=== PATIENT | male | born 1965 | race Caucasian/White ===

== ENCOUNTER 2018-04-16 06:30 | Inpatient (IN) | payer OTHER ==
[2018-04-16] VITALS (7 sets, daily range): BP systolic 117–171; BP diastolic 84–115
[~2018-04-16] VITALS: Ht 172.7 cm; Wt 83.5 kg
[~2018-04-16 06:30] MED LIST: CYCLOBENZAPRINE10 MG PO; FLEXERIL10 MG PO; MEDROL DOSEPAK4 MG PO; MOTRIN800 MG PO
[2018-04-16] MEDS ORDERED: HYDROCHLOROTHIA25 M1 PO (06:35)
[2018-04-16] MEDS ORDERED: LISINOPRIL20 MG PO (06:35)
[2018-04-16] MEDS ORDERED: SYMB80 INH (06:36)
[2018-04-16] MEDS ORDERED: SIMVASTATIN40 MG PO (06:36)
[2018-04-16 06:53] LABS: BASO % 0.2 % (0.0-1.0); EOS # 0.1 10*3/uL (0.0-0.4); EOS % 0.7 % (1.0-4.0); HEMATOCRIT 41.9 % (42.0-52.0); HEMOGLOBIN 14.5 g/dl (14.0-18.0); LYMPH # 2.1 10*3/uL (1.3-4.4); LYMPH % 22.7 % (27.0-41.0); MEAN CORPUSCULAR HGB 30.5 pg (27.0-31.0); MEAN CORPUSCULAR HGB CONC 34.6 g/dl (33.0-37.0); MEAN PLATELET VOLUME 8.9 fl (9.6-12.3); MONO % 10.6 % (3.0-9.0); NEUT % 64.9 % (47.0-73.0); PLATELET COUNT AUTOMATED 269 10*3/uL (130-400); RED BLOOD COUNT 4.76 10*6/uL (4.50-5.90); RED CELL DISTRI WIDTH 12.1 % (0-14.5); WHITE BLOOD COUNT 9.2 10*3/uL (4.8-10.8)
[2018-04-16 07:09] LABS: ALBUMIN 3.9 gm/dl (3.1-4.5); ALKALINE PHOSPHATASE 65 U/L (45-117); BUN 16 mg/dl (7-24); CHLORIDE 100 mmol/L (98-107); POTASSIUM 3.5 mmol/L (3.5-5.1); SGOT/AST 28 IU/L (3-35); SGPT/ALT 46 U/L (12-78); SODIUM 135 mmol/L (136-145); TOTAL PROTEIN 7.9 gm/dL (6.4-8.2)
[2018-04-17] VITALS: BP 126/73
[2018-04-17 06:30] LABS: BASO % 0.5 % (0.0-1.0); EOS # 0.1 10*3/uL (0.0-0.4); EOS % 1.9 % (1.0-4.0); HEMATOCRIT 44.6 % (42.0-52.0); HEMOGLOBIN 15.3 g/dl (14.0-18.0); LYMPH # 1.2 10*3/uL (1.3-4.4); LYMPH % 18.5 % (27.0-41.0); MEAN CELL VOLUME 89.2 fl (80.0-94.0); MEAN CORPUSCULAR HGB 30.6 pg (27.0-31.0); MEAN CORPUSCULAR HGB CONC 34.3 g/dl (33.0-37.0); MEAN PLATELET VOLUME 9.1 fl (9.6-12.3); MONO # 0.7 10*3/uL (0.1-1.0); MONO % 10.7 % (3.0-9.0); NEUT # 4.3 10*3/uL (2.3-7.9); NEUT % 67.6 % (47.0-73.0); PLATELET COUNT AUTOMATED 263 10*3/uL (130-400); RED CELL DISTRI WIDTH 12.3 % (0-14.5); WHITE BLOOD COUNT 6.3 10*3/uL (4.8-10.8)
[2018-04-17 06:39] LABS: ACT PARTIAL THROMBO TIME 22.5 SECONDS (20.8-31.5); INTERNATIONAL NORM RATIO 0.9 (2.0-3.5)
[2018-04-17 06:40] LABS: ALBUMIN 3.7 gm/dl (3.1-4.5); ALKALINE PHOSPHATASE 64 U/L (45-117); BUN 13 mg/dl (7-24); CHLORIDE 99 mmol/L (98-107); CHOLESTEROL 197 mg/dL (<200); CREATININE 0.97 mg/dL (0.70-1.30); PHOSPHOROUS 2.8 mg/dL (2.5-4.9); POTASSIUM 3.9 mmol/L (3.5-5.1); SGOT/AST 23 IU/L (3-35); SGPT/ALT 46 U/L (12-78); SODIUM 135 mmol/L (136-145); TOTAL PROTEIN 7.8 gm/dL (6.4-8.2); TRIGLYCERIDES 162 mg/dl (<150); VLDL CHOLESTEROL 32 mg/dL (6-40)
[2018-04-17 06:44] LABS: FREE T4 0.96 ng/dl (0.76-1.46); HDL CHOLESTEROL 38 mg/dl (40-60); LDL CHOLESTEROL 127 mg/dL (9-159); THYROID STIM HORMONE (HS) 0.885 uIU/ml (0.358-4.75)
[2018-04-17 07:36] LABS: VITAMIN D, 25-HYDROXY 27.6 ng/mL (30-100)
[2018-04-17 08:00] VITALS: BP 140/95
[2018-04-17 12:00] VITALS: BP 133/93
[2018-04-17 16:00] VITALS: BP 122/82
[2018-04-17 20:00] VITALS: BP 128/79
[2018-04-18] VITALS: BP 129/81
[2018-04-18 08:00] VITALS: BP 140/87
[2018-04-18] MEDS ORDERED: DOXYCYCLINE100 M3 PO (09:11)
== END 2018-04-18 10:18 | disposition home or self-care (01) | DRG 603 ==
LOC: ED 06:30 → 5E 09:00 → EDHOLD 09:00 → 5E 09:05
PROVIDERS: Student in an Organized Health Care Education/Training Program
DX: L03.116 Cellulitis of left lower limb (principal); E87.1 Hypo-osmolality and hyponatremia; R00.0 Tachycardia, unspecified; R73.9 Hyperglycemia, unspecified; D72.810 Lymphocytopenia; I10 Essential (primary) hypertension; E78.5 Hyperlipidemia, unspecified; E83.41 Hypermagnesemia; E55.9 Vitamin D deficiency, unspecified; R73.03 Prediabetes; Z88.2 Allergy status to sulfonamides; Z91.040 Latex allergy status; Z91.018 Allergy to other foods; Z82.49 Family history of ischemic heart disease and other diseases of the circulatory system; Z87.891 Personal history of nicotine dependence; Z80.8 Family history of malignant neoplasm of other organs or systems; Z83.3 Family history of diabetes mellitus

== ENCOUNTER 2018-12-28 20:03 | Emergency (ER) | payer OTHER ==
[~2018-12-28] VITALS: Ht 172.7 cm; Wt 81.6 kg
--- NOTE | ~2018-12-28 | EKG ---
[place], [place] ELECTROCARDIOGRAM REPORT NAME: ABIDA ALLAN UNIT #: [id number] ROOM: DOCTOR: EPIPHANY DRAFT REPORT BIRTHDATE: [birth year] [facility] Test Date: 2018-12-28 Test Time: 20:06:25 Pat Name: ABIDA ALLAN Department: Room: Gender: [employer]: : 1965 Requested By: JUAN MANUEL SILVERMAN Order Number: [id number] Reading MD: Leonie Lima MD Measurements Intervals [place] Rate: 94 P: 49 ME: 154 QRS: 53 QRSD: 114 T: 33 QT: 377 QTc: 472 Interpretive Statements Sinus rhythm Probable left atrial enlargement Borderline intraventricular conduction delay Electronically Signed On 12-29-2018 9:13:38 PDT by Leonie Lima MD CM:EKGRPT:ELECTROCARDIOGRAM REPORT 05 2 JUAN MANUEL GOFF DRAFT REPORT JUAN MANUEL SILVERMAN DO
--- NOTE | ~2018-12-28 | EKG ---
[place], [place] ELECTROCARDIOGRAM REPORT NAME: ABIDA ALLAN UNIT #: [id number] ROOM: DOCTOR: VIDYA DRAFT REPORT BIRTHDATE: [birth year] [facility] Test Date: 2018-12-28 Test Time: 23:09:16 Pat Name: ABIDA ALLAN Department: Room: Gender: [employer]: GERMAINE : 1965 Requested By: JUAN MANUEL SILVERMAN Order Number: [id number] Reading MD: Leonie Lima MD Measurements Intervals [place] Rate: 86 P: 44 [place]: 174 QRS: 38 QRSD: 113 T: 18 QT: 408 QTc: 488 Interpretive Statements Sinus rhythm Borderline intraventricular conduction delay Borderline prolonged QT interval Electronically Signed On 12-29-2018 9:15:05 PDT by Leonie Lima MD CM:EKGRPT:ELECTROCARDIOGRAM REPORT [id number] JUAN MANUEL GOFF DRAFT REPORT JUAN MANUEL SILVERMAN DO
[~2018-12-28 20:03] MED LIST changes: +DOXYCYCLINE100 M3 PO; +HYDROCHLOROTHIA25 M1 PO; +LISINOPRIL20 MG PO; +SIMVASTATIN40 MG PO; +SYMB80 INH
[2018-12-28 20:19] LABS: BASO % 0.4 % (0.0-1.0); EOS # 0.1 10*3/uL (0.0-0.4); EOS % 1.5 % (1.0-4.0); HEMATOCRIT 42.8 % (42.0-52.0); HEMOGLOBIN 14.7 g/dl (14.0-18.0); LYMPH # 2.4 10*3/uL (1.3-4.4); MEAN CELL VOLUME 89.7 fl (80.0-94.0); MEAN CORPUSCULAR HGB 30.8 pg (27.0-31.0); MEAN CORPUSCULAR HGB CONC 34.3 g/dl (33.0-37.0); MEAN PLATELET VOLUME 9.4 fl (9.6-12.3); MONO % 12.5 % (3.0-9.0); NEUT # 4.6 10*3/uL (2.3-7.9); PLATELET COUNT AUTOMATED 263 10*3/uL (130-400); RED BLOOD COUNT 4.77 10*6/uL (4.50-5.90); RED CELL DISTRI WIDTH 12.2 % (0-14.5); WHITE BLOOD COUNT 8.2 10*3/uL (4.8-10.8)
[2018-12-28 20:32] LABS: ACT PARTIAL THROMBO TIME 23.1 SECONDS (20.0-32.1); INTERNATIONAL NORM RATIO 0.9 (2.0-3.5)
[2018-12-28 20:59] LABS: ALBUMIN 3.9 gm/dl (3.1-4.5); ALKALINE PHOSPHATASE 61 U/L (45-117); BUN 24 mg/dl (7-24); CHLORIDE 103 mmol/L (98-107); CREATININE 1.21 mg/dL (0.70-1.30); POTASSIUM 3.7 mmol/L (3.5-5.1); SGOT/AST 28 IU/L (3-35); SGPT/ALT 51 U/L (12-78); SODIUM 139 mmol/L (136-145); TOTAL PROTEIN 7.9 gm/dL (6.4-8.2)
[2018-12-28 21:05] LABS: TROPONIN I < 0.015 ng/ml (<0.045)
== END 2018-12-29 00:12 | disposition home or self-care (01) ==
LOC: ED 20:03
PROVIDERS: Student in an Organized Health Care Education/Training Program
DX: R42 Dizziness and giddiness (principal); I10 Essential (primary) hypertension; R06.02 Shortness of breath; E78.00 Pure hypercholesterolemia, unspecified; Z87.891 Personal history of nicotine dependence; Z88.2 Allergy status to sulfonamides; Z79.899 Other long term (current) drug therapy; Z79.2 Long term (current) use of antibiotics

== ENCOUNTER 2019-01-12 11:39 | Emergency (ER) | payer OTHER ==
[~2019-01-12] VITALS: Ht 172.7 cm; Wt 81.6 kg
[2019-01-12 12:39] LABS: BASO # 0.1 10*3/uL (0.0-0.1); BASO % 0.6 % (0.0-1.0); EOS # 0.1 10*3/uL (0.0-0.4); EOS % 1.8 % (1.0-4.0); HEMATOCRIT 46.2 % (42.0-52.0); HEMOGLOBIN 15.7 g/dl (14.0-18.0); LYMPH # 1.9 10*3/uL (1.3-4.4); LYMPH % 24.3 % (27.0-41.0); MEAN CELL VOLUME 89.5 fl (80.0-94.0); MEAN CORPUSCULAR HGB 30.4 pg (27.0-31.0); MEAN PLATELET VOLUME 9.4 fl (9.6-12.3); MONO # 0.8 10*3/uL (0.1-1.0); MONO % 9.7 % (3.0-9.0); PLATELET COUNT AUTOMATED 271 10*3/uL (130-400); RED BLOOD COUNT 5.16 10*6/uL (4.50-5.90); WHITE BLOOD COUNT 7.9 10*3/uL (4.8-10.8)
[2019-01-12 12:52] LABS: ALBUMIN 4.4 gm/dl (3.1-4.5); ALKALINE PHOSPHATASE 65 U/L (45-117); BUN 15 mg/dl (7-24); CHLORIDE 97 mmol/L (98-107); CREATININE 0.99 mg/dL (0.70-1.30); SGOT/AST 21 IU/L (3-35); SGPT/ALT 53 U/L (12-78); SODIUM 134 mmol/L (136-145); TOTAL PROTEIN 8.3 gm/dL (6.4-8.2)
[2019-01-12] MEDS ORDERED: CLARITIN-D 121 EACH PO (15:31)
== END 2019-01-12 15:35 | disposition home or self-care (01) ==
LOC: ED 11:39
PROVIDERS: Emergency Medicine
DX: J34.89 Other specified disorders of nose and nasal sinuses (principal); R13.10 Dysphagia, unspecified; R68.2 Dry mouth, unspecified; E78.5 Hyperlipidemia, unspecified; I10 Essential (primary) hypertension; Z88.2 Allergy status to sulfonamides; Z79.2 Long term (current) use of antibiotics; Z79.899 Other long term (current) drug therapy; Z87.891 Personal history of nicotine dependence

== ENCOUNTER → 2022-09-26 | Outpatient (CLI) | payer OTHER ==
[~2022-09-26] MED LIST changes: +CLARITIN-D 121 EACH PO
== END | disposition home or self-care (01) ==
LOC: CT 13:36
PROVIDERS: ATTEND Specialist
DX: J34.2 Deviated nasal septum (principal); J32.9 Chronic sinusitis, unspecified